=== PATIENT | female | born 1985 | race Caucasian/White ===

== ENCOUNTER 2025-05-05 08:59 | Emergency (ER) | payer OTHER ==
[~2025-05-05] VITALS: Ht 162.6 cm; Wt 88.0 kg
[2025-05-05 09:08] VITALS: O2SAT 100
[2025-05-05 09:58] VITALS: BP 129/82; PULSE 95; RESP 24; TEMP 37; O2SAT 99
[2025-05-05 10:27] LABS: HEMATOCRIT. 42.2 % (36.0-48.0); HEMOGLOBIN. 13.8 g/dL (12.0-16.0); MEAN PLATELET VOLUME 7.4 fl (7.4-10.4); PLATELET 305 x1000/uL (130-400); RED BLOOD CELL COUNT 4.71 mill/uL (4.2-5.4); RED CELL DISTRIBUTION WIDTH 14.2 % (11.6-14.6)
[2025-05-05 10:48] LABS: HCG SCREEN NEGATIVE
[2025-05-05 10:58] LABS: BAND% 1.0 % (1.0-6.0); LYMPHOCYTES % MANUAL 5.0 % (20.0-60.0); MONOCYTES % MANUAL 6.0 % (2.0-8.0); NEUTROPHILS % MANUAL 88.0 % (45.0-75.0); PLATELET ESTIMATE NORMAL
[2025-05-05 11:14] LABS: CREATININE 0.6 mg/dL (0.6-1.0); UREA NITROGEN BLOOD 6 mg/dL (9-23)
[2025-05-05 11:15] LABS: *AMPHETAMINES SCREEN URINE NEGATIVE (NEGATIVE); *BARBITURATES SCREEN URINE NEGATIVE (NEGATIVE); *BENZODIAZEPINES SCREEN URINE NEGATIVE (NEGATIVE); *COCAINE SCREEN URINE NEGATIVE (NEGATIVE); CANNABINOID URINE SCREEN PRESUMPTIVE POSITIVE (NEGATIVE); ECSTASY MDMA SCREEN URINE NEGATIVE (NEGATIVE); METHADONE URINE SCREEN NEGATIVE (NEGATIVE); OPIATES URINE SCREEN NEGATIVE (NEGATIVE); PHENCYCLIDINE URINE SCREEN NEGATIVE (NEGATIVE)
[2025-05-05 11:15] LABS: ETHANOL BLOOD 292 mg/dL (<10)
== END 2025-05-05 12:30 | disposition left against medical advice (07) ==
LOC: ER 08:59
DX: R45.851 Suicidal ideations (principal); F10.129 Alcohol abuse with intoxication, unspecified; F12.929 Cannabis use, unspecified with intoxication, unspecified; F20.9 Schizophrenia, unspecified; F31.9 Bipolar disorder, unspecified; R51.9 Headache, unspecified; Z79.899 Other long term (current) drug therapy; V89.2XXA Person injured in unspecified motor-vehicle accident, traffic, initial encounter; Y93.89 Activity, other specified; Y92.89 Other specified places as the place of occurrence of the external cause; Y99.9 Unspecified external cause status; Y90.9 Presence of alcohol in blood, level not specified
CPT/HCPCS: 80305; 80048; 80307; 80329; 80320; 84703; 85025; 36415; 70450; 99284; 87426; Z7610; G0480